=== PATIENT | female | born 1990 | race African-American/Black ===

== ENCOUNTER 2022-02-15 21:28 | Emergency (ER) | payer MEDICAID ==
[~2022-02-15] VITALS: Ht 188 cm; Wt 88.2 kg
[2022-02-16] MEDS ORDERED: MORPHINE SULFATE 4 MG/ML CPJ (NOT FOR IM USE) IV STA (01:05)
[2022-02-16] MEDS ORDERED: ONDANSETRON HCL 4MG/2ML INJ IV STA (01:05)
[2022-02-16 02:01] LABS: HCG SCREEN NEGATIVE
[2022-02-16 04:00] VITALS: BP 105/64
[2022-02-16] MEDS ORDERED: IBUP-2029 MT (04:49)
== END 2022-02-16 05:17 | disposition home or self-care (01) ==
LOC: ER 21:28
DX: F07.81 Postconcussional syndrome (principal); M54.12 Radiculopathy, cervical region; R51.9 Headache, unspecified
CPT/HCPCS: 70450; 72125; 84703; 93005; 96374; 96375; 99285; J2270; J2405